=== PATIENT | female | born 1955 | race Caucasian/White ===

== ENCOUNTER → 2016-10-25 | Outpatient (CLI) | payer BC ==
--- NOTE | 2016-10-25 16:14 | Diagnostic Imaging Report ---
INDICATION: Asthma exacerbation. PA and lateral chest obtained at 04:00 p.m. and compared with 05/05/2016. Heart is borderline in size. There is no acute infiltrate or pneumothorax or pleural fluid. There are increased markings in the right cardiophrenic angle which are unchanged compared to the prior study and may be due to scarring. Mediastinal silhouette appears unremarkable. IMPRESSION: No acute process in the chest and no change from 05/05/2016. Dictated by: Dictated on workstation # [id number]
== END ==
LOC: RAD 15:51
PROVIDERS: ATTEND Family Medicine
DX: J45.31 Mild persistent asthma with (acute) exacerbation (principal)
CPT/HCPCS: 71020